=== PATIENT | female | born 1945 | race Caucasian/White ===

== ENCOUNTER 2016-10-08 02:33 | Inpatient (IN) | payer OTHER, MEDICARE ==
[~2016-10-08] VITALS: Ht 160 cm; Wt 67.1 kg
[~2016-10-08 02:33] MED LIST: AMITIZA8 MC1 PO; CRESTOR10 M1 PO; NEXIUM40 M1 PO; PROBIOTIC1 EACH PO; VITAMIN D31000 UNI1 PO
--- NOTE | 2016-10-08 10:32 | Admission Core Measures ---
Admission Meds I reviewed the following Meds: Current Medications Sig/Sameera Start time Last Medication Dose Stop Time Status Admin Acetaminophen 975 MG ONCE 10/08 0000 NR (Tylenol) 10/08 2358 Atorvastatin Calcium 40 MG 1700 10/08 170 UNVr (Lipitor) Cefazolin Sodium 2,000 MG ONCE 10/08 0000 NR (Kefzol-Ancef Inj) 10/08 2358 Lactobacillus 1 CAP BID 10/08 2199 UNVr Acidophilus (Probiotic) Omeprazole 40 MG DAILY AC 10/09 0700 UNVr (Prilosec) Oxycodone HCl 10 MG ONCE 10/08 0000 NR (Roxicodone) 10/08 2358 Acute Coronary Syndrome Inclusion Criteria ACS Diagnosis No Inpatient Core Measures LDL Reminder: If No, please order W/I first 24hr of stay Congestive Heart Failure Inclusion Criteria CHF Diagnosis No Cerebrovascular accident Inclusion Criteria CVA/TIA Diagnosis No Inpatient Core Measures Bedside Swallow Eval Reminder: If BSE failed, place ST order Antithrombotic Reminder: Order Antithrombotic Medication by end of day 2 Antithrombotic Reminder: Document Reason Antithrombotic Not ordered by end of day 2 AFIB/Flutter Reminder: If Present, add to problem list AFIB/Flutter Reminder: Order Anticoag Medication for pts with AFIB/Flutter Atherosclerosis Reminder: If Present, add to problem list LDL Reminder: If No, please order W/I first 24hr of stay PT Order Reminder: If No, please order Venous thromboembolism Inpatient Core Measures VTE Risk Factors: Age > 40, Surgery No [facility] VTE prophylaxis d/t No contraindications No VTE Pharm Prophylaxis d/t No contraindications Inclusion Criteria - Per Current guidelines, there needs to be overlap - treatment for the first 5 days of Warfarin therapy. - Parenteral Anticoagulation (IV or SC) needs to be - given along with Warfarin therapy. VTE Diagnosis No VTE Type NONE VTE Confirmed by (Test) NONE Problem List As ranked by this Provider includes Assessment & Plan 1. Status post total hip replacement, left HOME MEDS Home Med List Cholecalciferol (Vitamin D3) (Vitamin D3) 1,000 UNIT CAPSULE 2 CAP PO DAILY PROPHO (Reported) Esomeprazole (Nexium) 40 MG CAPSULE.DR 1 CAP PO DAILY GERD (Reported) Lactobacillus Acidophilus (Probiotic) 10 BILLION CELL CAPSULE 1 CAP PO DAILY PROPHO (Reported) Lubiprostone (Amitiza) 8 MCG CAPSULE 2 CAP PO BID CONSTIPATION (Reported) Rosuvastatin Calcium (Crestor) 10 MG TABLET 1 TAB PO DAILY CHOLESTEROL ( Reported)
--- NOTE | 2016-10-08 11:18 | Patient Discharge Instructions ---
Discharge Instructions General Discharge Information You were seen/treated for: Hip pain You had these procedures: Left total hip replacement Watch for these problems: temp>101, increased redness or drainage of wounds No bath, but you may shower: Yes Other wound care: Keep incisions clean and dry. May shower but no bathing or soaking. Diet Continue normal diet: Yes Activity Activity Self Limited: Yes Activity Limited to: Weight bear as tolerated Acute Coronary Syndrome Inclusion Criteria At DC or during hospital stay patient has or had the following: ACS DIAGNOSIS No Discharge Core Measures Meds if any: Prescribed or Continued at Discharge Meds if any: NOT Prescribed or Continued at Discharge Congestive Heart Failure Inclusion Criteria At DC or during hospital stay patient has or had the following: CHF DIAGNOSIS No Discharge Core Measures Meds if any: Prescribed or Continued at Discharge Meds if any: NOT Prescribed or Continued at Discharge Cerebrovascular accident Inclusion Criteria At DC or during hospital stay patient has or had the following: CVA/TIA Diagnosis No Discharge Core Measures Meds if any: Prescribed or Continued at Discharge Meds if any: NOT Prescribed or Continued at Discharge Venous thromboembolism Inclusion Criteria VTE Diagnosis No VTE Type NONE VTE Confirmed by (Test) NONE Discharge Core Measures - Per Current guidelines, there needs to be overlap - treatment for the first 5 days of Warfarin therapy. - If discharged on Warfarin prior to 5 days of - overlap therapy, the patient will need to be - assessed for post discharge needs including - *Post discharge parental anticoagulation - *Warfarin and/or parental anticoagulation education - *Follow up date to check INR post discharge At least 5 days overlap therapy as Inpatient No Meds if any: Prescribed or Continued at Discharge Note: Overlap Therapy is Warfarin and Anticoagulant Meds if any: NOT Prescribed or Continued at Discharge
[2016-10-08] MEDS ORDERED: DILAUDID2 M1 PO (11:20)
[2016-10-08] MEDS ORDERED: MIRALAX17 G1 PO (11:20)
[2016-10-08] MEDS ORDERED: MS CONTIN15 M2 PO (11:20)
[2016-10-08] MEDS ORDERED: COLACE100 M1 PO (11:20)
[2016-10-08] MEDS ORDERED: ASPIRIN EC325 M2 PO (11:20)
--- NOTE | 2016-10-08 11:22 | Surg Short-stay <48hrs Dis Sum ---
Visit Information Visit Dates Admission Date: 10/08/16 Discharge Date: 10/09/16 Surgical Short Stay DC Summary Admission Diagnosis: Hip pain Final Diagnosis: s/p L FAVIOLA Procedure(s): L FAVIOLA - see operative report Summary/Significant Findings: Pt underwent a L THR by Dr Osei on 10/08. She tolerated the procedure well and was brought to the PACU in stable condition. Over the course of her stay, she was able to void, tolerating a diet, her pain was well controlled with medication, and she worked with PT. She was cleared by PT to be discharged home with services on post-op day#1. Condition at Discharge: good Discharge Disposition: home health services Discharge instructions provided to patient/family: Yes Post discharge follow-up plan: Keep scheduled appointment with DR Osei in 6 weeks.
--- NOTE | 2016-10-08 13:50 | RADIOLOGY REPORT ---
EXAMINATION: XR HIP, LEFT CLINICAL INFORMATION: Status post left total hip replacement. COMPARISON: None TECHNIQUE: AP and crosstable lateral views of the left hip utilizing portable technique in the PACU. of the left hip. FINDINGS: Exam shows the total hip replacement in the normally expected position. No complications are seen. Multiple clips are present in the right pelvis from previous surgery. IMPRESSION: Status post total hip replacement, no complications.
[2016-10-08 16:20] VITALS: BP 96/48
--- NOTE | 2016-10-08 16:29 | PN- Orthopedic ---
Subjective Subjective: Post op check Pt complaining of nausea States that she is very sensitive to narcotics and nausea is a common severe side effect. She also suffers from vertigo at baseline. She states that her systolic bp is 90's at baseline. Pain is tolerable currently Has not ambulated secondary to nausea Objective Vital Signs and I&Os afebrile bp systolic 94-100 Sat 98% 2lnc Physical Exam: General; alert and oriented Chest: clear anteriorly bilaterally, RRR Abd: soft, good bs Ext: warm, no edema, positive sensate, no calf tenderness, ice pack in place Assessment/Plan Assessment/Plan 70 yo female s/p L FAVIOLA PT - wbat zofran prn lower dilaudid to 1-2mg prn rather than 2-4 as pt is very sensitive toradol Core Measures/Miscellaneous Venous Thromboembolism VTE Risk Factors: Age > 40, Surgery VTE Contraindications: No Contraindications VTE Diagnosis: No VTE Type: NONE VTE Confirmed by (Test): NONE Beta Brigid Is Beta Brigid a Home Med? No Antibiotics Is Patient on Antibiotics? Yes If Yes: prophylaxis (24 hrs post op)
--- NOTE | 2016-10-08 16:30 | NUR ---
1610 PT ARRIVED TO THE FLOOR A+O X2, VSS, SYSTOLIC IN 90'S AT BASELINE, ON RA, NO S/O DISTRESS, WALKED TO BATHROOM AAND BED FROM THE [facility] WITH PHYSICAL THERAPY, MILDLY LIGHTHEADED WHICH PATIENT STATED AT BASELINE, BP RECHECK 98/56, HR 70. PATIENT ORIENTED TO THE ROOM, BED LOW, LOCKED, CALL LIGHT IN REACH. ANTHONY [place] AWARE OF LIGHTHEADEDNESS.
[2016-10-08 18:00] VITALS: BP 98/56
--- NOTE | 2016-10-08 19:35 | Operative Report ---
Operative/Inv Procedure Report Surgery Date: 10/08/16 Name of Procedure: Left total hip replacement Pre-Operative Diagnosis: Primary left hip DJD Post-Operative Diagnosis: Same Estimated Blood Loss: 250 Surgeon/Process Coach: ANITA FRANKS,HILARIO Bedolla Anesthesia: block Operative/Procedure Note Note: Description of Procedure: The patient was taken to the operating room and positively identified. After induction of spinal anesthesia and administration of appropriate pre-operative antibiotics, the patient was positioned supine on the operating room table and all bony prominences were well padded. After performing a surgical timeout, the left lower extremity was prepped and draped in the usual sterile fashion. A direct anterior approach was made to the left hip. The incision was carried sharply through superficial soft tissues to the level of the fascia. Meticulous hemostasis was maintained with Bovie electocautery. The fascia over the tensor fascia soy muscle was opened sharply and the interval between the TFL and the sartorius was entered bluntly taking care to stay lateral to the lateral femoral cutaneous nerve. Retractors were placed around the femoral neck and the pericapsular fat was identified. The ascending branches of the lateral femoral circumflex vessels were identified and carefully coagulated. The pericapsular fat and anterior capsule were then resected. A napkin ring osteotomy was performed and the femoral head was removed without difficulty. Attention was then turned to the acetabulum. After appropriate placement of retractors, the acetabulum was exposed. Soft tissue was cleaned from the acetabular margin and notch. Overhanging osteophytes were removed and the teardrop was exposed. The acetabulum was then sequentially reamed to accept a 52 mm Holland Tritanium hemispherical solid back shell. This was impacted into place in the appropriate position and fitted with a 32 mm Trident X3 zero degree polyethylene insert. Attention was then turned to the femur. After performing the appropriate ligament releases, the proximal femur was exposed. It was then sequentially broached to accept a size 4 Holland accolade 2 stem. This was trialed for leg length and stability. The trial component was removed and the final component was impacted into place. The trunnion was carefully cleaned and fit with a 32 mm, +0 Biolox delta ceramic femoral head. The hip was reduced and put through a full range of motion and found to be stable. The articular space was then irrigated with sterile saline. The periarticular soft tissues were infilitrated with Marcaine. The fascial layer was closed with interrupted #1 vicryl suture and the skin was re-approximated with interrupted 2 -0 vicryl. The skin was closed with a running 3-0 V-Lock suture. Steri-strips and a sterile dressing were applied. The patient was awakened and taken to the recovery room in satisfactory condition.
[2016-10-08 21:56] VITALS: BP 98/58
[2016-10-09 01:47] VITALS: BP 100/58
[2016-10-09 05:42] VITALS: BP 100/58
--- NOTE | 2016-10-09 07:08 | PN- Orthopedic ---
Subjective Subjective: The patient was seen this morning postoperatively day #1. She reports her pain is under adequate control and has no other complaints at the current time. She is eager to work with physical therapy this morning and the possible discharge later today. Objective Vital Signs and I&Os Vital Signs Date Time Temp Pulse Resp B/P B/P Pulse O2 O2 Flow FiO2 Mean Ox Delivery Rate 10/09 0542 98.1 55 20 100/58 96 Room Air 10/09 0147 98.0 56 18 100/58 94 Room Air 10/08 2156 98.3 66 20 98/58 95 Room Air 10/08 1800 70 18 98/56 95 Room Air Room Air 10/08 1620 97.4 68 18 96/48 95 Room Air Room Air Intake & Output 10/09 0800 10/09 0000 10/08 1600 10/08 0800 10/08 0000 10/07 1600 Intake Total 1080 705 Output Total 1700 600 Balance -620 105 Intake, IV 600 225 Intake, Oral 480 480 Output, Urine 1700 600 Patient 148 lb Weight Weight Reported by Patient Measurement Method Physical Exam: Gen.: Alert and in no obvious distress Skin: Warm and dry Extremities: Bilateral lower extremities are warm without calf tenderness or significant edema. Gross motor and sensory are intact. Left hip dressing is clean, dry, and intact. There is mild surrounding edema and ecchymosis which is expected. Assessment/Plan Assessment/Plan Assessment: 70-year-old female status post left total hip arthroplasty. Postoperative the patient is progressing as expected and her pain is under adequate control. Plan: Out of bed with physical therapy Follow-up morning laboratory studies Hep-Lock IV fluids Incentive spirometry Continue current pain regiment GI and DVT prophylaxis Discharge home later today if cleared by physical therapy Core Measures/Miscellaneous Venous Thromboembolism VTE Risk Factors: Age > 40, Surgery VTE Contraindications: No Contraindications VTE Diagnosis: No VTE Type: NONE VTE Confirmed by (Test): NONE Beta Brigid Is Beta Brigid a Home Med? No Antibiotics Is Patient on Antibiotics? No
[2016-10-09 09:06] LABS: ABSOLUTE BASOPHIL COUNT 0 /CUMM (0.0-0.2); ABSOLUTE EOSINOPHIL COUNT 0 /CUMM (0.0-0.7); ABSOLUTE LYMPH COUNT 0.7 /CUMM (1.2-3.4); ABSOLUTE MONOCYTE COUNT 0.9 /CUMM (0.10-0.60); BASOPHIL % 0 % (0.0-2.0); EOSINOPHIL % 0 % (0-5); GRANULOCYTE % 85.9 % (42.2-75.2); HEMATOCRIT 34.2 % (37-47); MEAN CORPUSCULAR HGB 30.6 PG (27.0-31.0); MEAN CORPUSCULAR HGB CONC 33.5 G/DL (33.0-37.0); MEAN CORPUSCULAR VOLUME 91.3 FL (81.0-99.0); MEAN PLATELET VOLUME 8.9 FL (7.4-10.4); PLATELET COUNT 170 /CUMM (130-400); RBC DISTRIBUTION WIDTH 13.2 % (11.5-14.5); RED BLOOD CELL CT 3.74 /CUMM (4.20-5.40); WHITE BLOOD CELL COUNT 11.6 /CUMM (4.8-10.8)
== END 2016-10-09 12:05 | disposition home health service (06) | DRG 470 ==
LOC: SDA 02:33 → ENRESERV 13:00 → 2NB 15:45 → ENPENDDIS 10-09 07:09 → 2NB 10-09 12:05
PROVIDERS: Physician Assistant Surgical; ADMIT Orthopaedic Surgery
PROC: 0SRB04A Replacement of Left Hip Joint with Ceramic on Polyethylene Synthetic Substitute, Uncemented, Open Approach (ICD-10-PCS; principal; 2016-10-08)
DX: M16.12 Unilateral primary osteoarthritis, left hip (principal); E78.5 Hyperlipidemia, unspecified; Z87.891 Personal history of nicotine dependence
CPT/HCPCS: 2NBSP; 36415; 73502-LT; 82436; 88304; 97110-GO; 97116-GO; 97161-GP; 97530-GO; J0690; J0735; J1100; J1885; J2405; J7042